=== PATIENT | male | born 1990 | race Caucasian/White ===

== ENCOUNTER 2017-10-27 13:30 | Emergency (ER) | payer BC ==
[~2017-10-27] VITALS: Ht 177.8 cm; Wt 72.7 kg
[2017-10-27] MEDS ORDERED: PHENERGAN 25 TA25 MG PO (14:08)
[2017-10-27 14:30] VITALS: BP 122/76; PULSE 90; TEMP 98
== END 2017-10-27 14:36 | disposition home or self-care (01) ==
LOC: COL.ER 13:30
DX: R19.7 Diarrhea, unspecified (principal); R11.0 Nausea; F17.210 Nicotine dependence, cigarettes, uncomplicated

== ENCOUNTER 2018-11-01 10:09 | Emergency (ER) | payer OTHER ==
[~2018-11-01] VITALS: Ht 175.3 cm; Wt 72.7 kg
[~2018-11-01 10:09] MED LIST: PHENERGAN 25 TA25 MG PO
[2018-11-01 10:22] VITALS: BP 117/65; PULSE 106; TEMP 98.1
[2018-11-01] MEDS ORDERED: PREDNISONE20 MG PO (10:40)
[2018-11-01] MEDS ORDERED: ZITHROMAX Z PA250 MG PO (10:40)
== END 2018-11-01 10:52 | disposition home or self-care (01) ==
LOC: COL.ER 10:09
DX: J40 Bronchitis, not specified as acute or chronic (principal); F17.210 Nicotine dependence, cigarettes, uncomplicated